=== PATIENT | female | born 1995 ===

== ENCOUNTER 2016-09-11 21:00 | Emergency (ER) | payer BC ==
[2016-09-11 21:01] VITALS: BMI 27.8
[2016-09-11 21:16] VITALS: BP 120/77; PULSE 76; RESP 16; TEMP 98.6; O2SAT 100
--- NOTE | 2016-09-11 21:51 | C.PDOC ---
History Of Present Illness A 20 year old female presents to the emergency room status post a mechanical fall that occurred today at 3pm. Patient reports that she slipped and fell. Patient notes left ankle pain. Patient denies any head trauma/LOC, any other pain, numbness, weakness, any sensory changes, difficulty ambulating, or any other complaints. Time Seen by Provider: 09/11/16 21:15 Chief Complaint (Nursing): Lower Extremity Problem/Injury History Per: Patient History/Exam Limitations: no limitations Onset/Duration Of Symptoms: Hrs Current Symptoms Are (Timing): Still Present Severity: Mild Recent travel outside of the [place]: No - Ankle/Foot Description Of Injury: Fell Past Medical History Reviewed: Historical Data, Nursing Documentation, Vital Signs Vital Signs: Last Vital Signs Temp 98.6 F 09/11/16 21:14 Pulse 76 09/11/16 21:14 Resp 16 09/11/16 21:14 BP 120/77 09/11/16 21:14 Pulse Ox 100 09/11/16 23:09 Family History: States: Unknown Family Hx - Social History Hx Tobacco Use: No Hx Alcohol Use: No Hx Substance Use: No - Immunization History Hx Tetanus Toxoid Vaccination: Yes Hx Influenza Vaccination: Yes Hx Pneumococcal Vaccination: No Review Of Systems Except As Marked, All Systems Reviewed And Found Negative. Constitutional: Negative for: Fever, Chills Gastrointestinal: Negative for: Nausea, Vomiting, Diarrhea Musculoskeletal: Positive for: Other (Left ankle pain) Neurological: Negative for: Weakness, Numbness, Headache, Dizziness Physical Exam - Physical Exam Appears: Well, Non-toxic, No Acute Distress Skin: Normal Color, Warm, Dry, No Rash, No Ecchymosis Head: Atraumatic, Normacephalic Eye(s): bilateral: Normal Inspection Extremity: Normal ROM, Tenderness (Minimal tenderness to anterior portion of left ankle), No Swelling Extremity: Bilateral: Normal Color And Temperature, Normal ROM Pulses: Left Dorsalis Pedis: Normal, Right Dorsalis Pedis: Normal Neurological/Psych: Oriented x3, Normal Speech, Normal Cognition, Normal Motor, Normal Sensation Gait: Steady ED Course And Treatment O2 Sat by Pulse Oximetry: 100 Medical Decision Making Medical Decision Making: Impression: 20 yo F presents with L ankle injury. Minimal tenderness to anterior portion of left ankle noted on PE. Plan: XR ordered. Given tylenol po. Progress Notes: XR L ankle : (-) fracture, (-) dislocation, as read by PA. XR results discussed with the patient. Karsten wrap applied to the ankle. Patient was given crutches. Patient advised to f/u with pmd in 2 days without fail, take otc nsaids for pain , ice and elevate the ankle. Disposition - Disposition Disposition: HOME/ ROUTINE Disposition Time: 21:50 Condition: GOOD Additional Instructions: Follow up with pmd in 2 days without fail, take over the counter motrin or aleeve for pain, ice and elevate the ankle. Instructions: Ankle Sprain (ED) Forms: School Excuse, Work Excuse Print Language: GRENADIAN - Clinical Impression Clinical Impression: Ankle sprain - PA / INSTRUCTOR BUSINESS EDUCATION / Resident Statement MD/DO has reviewed & agrees with the documentation as recorded. - Scribe Statement The provider has reviewed the documentation as recorded by the Jahibkacy Denis Provider Scribe Attestation: All medical record entries made by the Jahibkacy were at my direction and personally dictated by me. I have reviewed the chart and agree that the record accurately reflects my personal performance of the history, physical exam, medical decision making, and the department course for this patient. I have also personally directed, reviewed, and agree with the discharge instructions and disposition.
--- NOTE | 2016-09-12 09:22 | RAD ---
PROCEDURE: Left Ankle Radiographs. HISTORY: pain COMPARISON: None FINDINGS: BONES: Normal. No fracture. JOINTS: Normal. No osteoarthritis. Ankle mortise maintained. Talar dome intact SOFT TISSUES: Kmbi-de-ldgibqzy soft tissue swelling more prominent at the medial malleolus. OTHER FINDINGS: None. IMPRESSION: No radiographic evidence of acute fracture or dislocation. [id number]-yq-nzwbnall soft tissue swelling more prominent at the medial malleolus.
== END 2016-09-11 22:15 | disposition home or self-care (01) ==
LOC: C.ER 21:00
DX: S93.402A Sprain of unspecified ligament of left ankle, initial encounter (principal); W01.0XXA Fall on same level from slipping, tripping and stumbling without subsequent striking against object, initial encounter